=== PATIENT | male | born 1975 | race Hispanic/Latino ===

== ENCOUNTER 2021-03-08 19:59 | Emergency (ER) | payer BC | END 2021-03-08 21:17 | disposition home or self-care (01) | LOC: ERS 19:59 | DX: R13.10 Dysphagia, unspecified (principal); F17.210 Nicotine dependence, cigarettes, uncomplicated | CPT/HCPCS: 99283 ==

== ENCOUNTER 2023-02-20 14:20 | Emergency (ER) | payer BC ==
[2023-02-20] MEDS ORDERED: Lidocaine 1% w/Epinephrine 1:100K 20 ML VIAL ONE (15:39)
[2023-02-20] MEDS ORDERED: HYDROcodone/Acetaminophen 5/325 mg Tablet ONE (15:45)
== END 2023-02-20 16:35 | disposition home or self-care (01) ==
LOC: ERS 14:20
DX: L03.317 Cellulitis of buttock (principal); L02.31 Cutaneous abscess of buttock; F17.210 Nicotine dependence, cigarettes, uncomplicated
CPT/HCPCS: 10060; 87070; 87077; 87205